=== PATIENT | male | born 2000 | race Caucasian/White ===

== ENCOUNTER 2023-02-17 21:49 | Emergency (ER) | payer BC, SELFPAY ==
[2023-02-17 21:50] VITALS: BP 135/91; PULSE 80; RESP 15; TEMP 36.4; O2SAT 100; BMI 20.1
--- NOTE | 2023-02-18 00:26 | EKG12_ITS ---
Test Reason : DIZZINESS Blood Pressure : / mmHG Vent. Rate : 063 BPM Atrial Rate : 063 BPM P-R Int : 156 ms QRS Dur : 110 ms QT Int : 434 ms P-R-T Axes : 002 066 046 degrees QTc Int : 444 ms Normal sinus rhythm with sinus arrhythmia Normal ECG Confirmed by JUSTA MILES, CARLOS ([id number]), web content editor FAN POOL ([id number]) on 02/20/2023 8:02:16 AM Referred By: KENZIE Confirmed By:CARLOS MARR MD
--- NOTE | 2023-02-18 00:40 | EX.ED.DYSGE1 ---
HPI History of Present Illness Chief Complaint: Dizziness Informant: patient Narrative Narrative: Patient is a 22-year-old male denies any past medical history but notes a recent rotator cuff injury that is causing a lot of pain making it difficult for him to work. He is presenting after an episode of dizziness, lightheadedness which then led to him having numbness and tingling in his hands and his feet and his hands feeling stuck. The whole episode lasted about an hour and a half. On my evaluation patient symptoms have resolved and he feels back to normal. He has had prior episodes of note about a week ago he had an episode so bad that he almost passed out. No other complaints at this time. Denies any fevers, chills, weight changes, nausea, vomiting, abdominal pain, chest pain or difficulty breathing. Only cardiac family history as his maternal grandmother just had to have a TAVR for aortic valve stenosis. No other complaints or concerns at this time. PFSH PFSH Medical History no medical history Home Medications hydroxyzine HCl 25 mg tablet 25 mg PO TID PRN anxiety #20 tabs 02/18/23 [Rx Last Taken Unknown] Allergy/AdvReac Type Severity Reaction Status Date / Time No Known Allergies Allergy Verified 02/17/23 21:53 Social History Smoking Status: Current every day smoker tobacco type: e-cigarettes ROS ROS ED Constitutional Constitutional ED: Denies chills or fever(s) Eyes Eyes: Denies blurry vision or change in vision ENT ENT ED: Denies sore throat Cardiovascular Cardiovascular: Denies chest pain, palpitations or racing heartbeat Respiratory/Chest Respiratory/Chest: Denies cough Gastrointestinal Gastrointestinal: Denies abdominal pain, nausea or vomiting Genitourinary Genitourinary ED: Denies dysuria Musculoskeletal Musculoskeletal: Denies arthralgias or myalgias Integumentary Denies rash Neurologic Neurologic: Reports paresthesias; Denies headache(s) or weakness Psychiatric Psychiatric: Reports anxiety EXAM Physical Exam Const Vital Signs: 02/17/23 21:50 02/17/23 22:43 Temperature 97.5 F L Temperature Source Temporal Pulse Rate 80 Respiratory Rate 15 Respiratory Effort Normal Non-Labored Respiratory Pattern Normal Blood Pressure 135/91 H Blood Pressure Mean 105 Pulse Ox 100 Oxygen Delivery Method Room Air Positive well nourished and well developed General Appearance ED: well developed and NAD HEENT Reports moist mucous membranes Eyes PERRL and EOMs intact bilaterally Neck supple and no JVD Chest Wall inspection of chest normal and palpation of chest normal Resp normal respiratory effort and clear to auscultation bilaterally Cardio regular rate, regular rhythm and no murmurs GI normal to inspection, nondistended, normoactive bowel sounds and non-tender Extremity normal to inspection General Extremety ED: Negative for edema or tenderness General Extremity: Negative for edema Neuro oriented x3, CN's II-XII intact bilaterally and no sensory deficits noted Sensorium / Orientation: alert Motor Exam: strength 5/5 throughout; Negative for general weakness Psych mental status grossly normal Mood & Affect: Negative for depressed or anxious Skin no rashes or lesions noted MDM MDM MDM Narrative Medical decision making narrative: Patient is evaluated for an episode of lightheadedness with what sounds like carpopedal spasm. Symptoms are since resolved. I suspect this is more of an anxiety reaction associate with hyperventilation. Patient does admit that he was breathing fast during this episode. Has had similar episodes. EKG is obtained which does not show any serious arrhythmia concerning for cardiogenic cause of his symptoms. Patient does not have any other systemic symptoms I do not think blood work is indicated at this time. Is given as needed prescription for hydroxyzine to help with his symptoms. Counseled to follow-up with his primary care doctor and discuss further treatment and management options for these episodes and possible treatment for anxiety. Patient and mother verbalized agreement understand this plan. He is given return precautions. Discharged home in stable condition. Patient does not appear dehydrated and has normal vital signs. Do not think requires IV fluids. Rhythm Strip Rhythm Strip: Sinus Rhythm Rate: 63 Ectopy: None EKG Initial EKG: Attestation: I personally reviewed and interpreted this EKG as follows: Interpretation: Sinus Rhythm Comments: Normal sinus rhythm at a rate of 63 bpm with sinus arrhythmia Normal axis Normal intervals Normal ST segments No changes consistent with HOCM, Brugada, WPW or prolonged QTc Discharge Plan Triage Chief Complaint: Dizziness ED Provider: Keely García Dx/Rx/DC Orders Clinical Impression: Dizziness, Carpopedal spasm Instructions: ED Dizziness, Uncertain Cause, ED Hyperventilation Syndrome Prescriptions: New hydroxyzine HCl 25 mg tablet 25 mg PO TID PRN (Reason: anxiety) Qty: 20 0RF Primary Care Provider: Jacinto Gibbs Referrals: Jacinto Gibbs MD [Primary Care Provider] - Activity Restrictions/Additional Instructions: I suspect your episode today was more associated with a panic reaction or hyperventilation that then caused your hands and feet to feel numb. Please follow with your primary care doctor. If you have a progression or change or symptoms please return to the emergency room. Your EKG was largely normal Disposition Disposition: Home, Self Care
== END 2023-02-18 00:54 | disposition home or self-care (01) ==
PROVIDERS: Emergency Provider Emergency Medicine; PCP Family Medicine; Visit Provider Emergency Medicine
DX: R42 Dizziness and giddiness (principal); R29.0 Tetany; F17.290 Nicotine dependence, other tobacco product, uncomplicated
CPT/HCPCS: 93005; 99282